=== PATIENT | male | born 1990 | race Caucasian/White ===

== ENCOUNTER 2017-04-18 17:14 | Emergency (ER) | payer SELFPAY ==
[~2017-04-18] VITALS: Ht 177.8 cm; Wt 70.0 kg
[~2017-04-18 17:14] MED LIST: AMOX875 PO; MEDR4PAK3 PO; SUBO2MIS SL; VENTAER INH; ZITH250T PO
[2017-04-18 17:32] VITALS: BP 117/63; PULSE 84; RESP 16; TEMP 98.4; O2SAT 100
[2017-04-18] MEDS ORDERED: BUPR8SUB SL (17:39)
[2017-04-18] MEDS ORDERED: TETANUS/DIPHTHERIA TOXOID ADULT 0.5 ML VIAL IM ONE (17:45)
--- NOTE | 2017-04-18 17:48 | PD ---
HPI Chief Complaint: Laceration/Skin Injury Time Seen by Provider: 17:45 Travel History International Travel<30 days: No Contact w/Intl Traveler<30days: No Traveled to known affect area: No History of Present Illness HPI 27-year-old male presents to the emergency room for evaluation after stepping on a greta nail 6 hours prior to arrival. Patient states the nail went through his shoe and poked his foot. He was bleeding. He went home and washed it off with hydrogen peroxide and applied triple antibiotic ointment. He came to the emergency room because he does not remember his last tetanus shot. Patient reports minimal pain. He has been ambulatory since onset of symptoms. [facility] Past Medical History Depression: Yes Heart Rhythm Problems: Yes (SVT) Diminished Hearing: No Neurologic: Yes (CHRONIC BACK PAIN) Immunizations Current: No Tetanus Vaccination: > 5 Years Influenza Vaccination: No Past Surgical History Other Surgery: No Social History Alcohol Use: No Tobacco Use: Yes (11/29) Substance Use: Yes (MARIJUANA or "anything". last used begining of 12/10) Allergies-Medications (Allergen,Severity, Reaction): Coded Allergies: No Known Allergies (Verified , 04/18/17) Reported Meds & Prescriptions Reported Meds & Active Scripts Active Cipro (Ciprofloxacin HCl) 250 Mg Tab 500 Mg PO BID 7 Days Reported Buprenorphine (Buprenorphine HCl) 8 Mg Subl 8 Mg SL Review of Systems Except as stated in HPI: all other systems reviewed are Neg Physical Exam Narrative GENERAL: Well-nourished, well-developed male in no acute distress. Afebrile. Ambulatory. SKIN: Focused skin assessment warm/dry. There is a 2 mm superficial laceration to the posterior heel of the right foot. Nontender. No surrounding erythema. No drainage. HEAD: Normocephalic. EYES: No scleral icterus. No injection or drainage. NECK: Supple, trachea midline. No JVD or lymphadenopathy. CARDIOVASCULAR: Regular rate and rhythm without murmurs, gallops, or rubs. RESPIRATORY: Breath sounds equal bilaterally. No accessory muscle use. PSYCHIATRIC: No delusional thought processes. No hallucinations. Data Data Last Documented VS Vital Signs Date Time Temp Pulse Resp B/P Pulse Ox O2 Delivery O2 Flow Rate FiO2 04/18/17 17:32 98.4 84 16 117/63 100 Orders Tetanus/Diphtheria Tox Adult (Tetanus/Di (04/18/17 17:45) [facility] Medical Decision Making Medical Screen Exam Complete: Yes Emergency Medical Condition: Yes Medical Record Reviewed: Yes Differential Diagnosis Puncture wound versus tetanus prophylaxis versus infection Narrative Course 27-year-old male presents to the emergency room for evaluation after stepping on a greta nail. Nail went through his shoe. He was updated on tetanus. Physical exam reveals a 2 mm superficial laceration to the posterior heel of the right foot. Nontender. No surrounding erythema. No drainage. Patient will be discharged with prophylactic antibiotics. Told to follow up with a primary care physician or return for worsening symptoms. Understands and agrees to plan. Diagnosis Primary Impression: Puncture wound of skin from metal nail Referrals: Primary Care Physician Patient Instructions: General Instructions, Puncture Wound (ED) Additional Instructions: Rest and drink plenty of fluids. Take Cipro as directed, until gone. Take ibuprofen with food as directed, as needed for pain. Soak in warm water for 20 minutes at a time, as needed for pain and swelling. Follow-up with a primary care physician. Return to the emergency room for worsening symptoms. Med/Other Pt SpecificInfo: Prescription(s) given Scripts Ciprofloxacin (Cipro)250 Mg [id number] Mg PO BID 7 Days Ref 0 Prov:Niya Simpson MD 04/18/17 Disposition: 01 DISCHARGE HOME Condition: Stable Dinora Armijo April 18, 2017 17:48
[2017-04-18] MEDS ORDERED: CIPR250T52 PO (17:50)
== END 2017-04-18 18:05 | disposition home or self-care (01) ==
LOC: PHEFT 17:14
DX: S91.331A Puncture wound without foreign body, right foot, initial encounter (principal); Z23 Encounter for immunization; W45.0XXA Nail entering through skin, initial encounter; Y93.9 Activity, unspecified; Y92.9 Unspecified place or not applicable; Y99.9 Unspecified external cause status
CPT/HCPCS: 90471; 90714

== ENCOUNTER 2017-06-14 15:39 | Emergency (ER) | payer SELFPAY ==
[~2017-06-14] VITALS: Ht 175.3 cm; Wt 69.6 kg
[~2017-06-14 15:39] MED LIST changes: -AMOX875 PO; +BUPR8SUB SL; +CIPR250T52 PO; -MEDR4PAK3 PO; -SUBO2MIS SL; -VENTAER INH; -ZITH250T PO
[2017-06-14 16:21] VITALS: BP 117/63; PULSE 81; RESP 16; TEMP 98.2; O2SAT 99
--- NOTE | 2017-06-14 16:58 | PD ---
HPI Chief Complaint: Injury Time Seen by Provider: 16:40 Travel History International Travel<30 days: No Contact w/Intl Traveler<30days: No Traveled to known affect area: No History of Present Illness HPI 77-year-old male presents to the emergency room for evaluation of right shoulder pain and swelling after falling just prior to arrival. Patient was on his skateboard and he fell landing with all his weight on the right shoulder. Localizes pain to the lateral clavicle. Denies any other injuries. States pain is most severe with abduction. He denies paresthesias. Came straight to the emergency room and has not taken anything for his symptoms. No chronic medical conditions. PFSH Past Medical History Depression: Yes Heart Rhythm Problems: Yes (SVT) Diminished Hearing: No Neurologic: Yes (CHRONIC BACK PAIN) Immunizations Current: No Past Surgical History Surgical History: No Previous Surgery Other Surgery: No Social History Alcohol Use: Yes ([facility]) Tobacco Use: Yes (1/2) Substance Use: Yes (ON SUBOXONE OPOID ABUSE) Allergies-Medications (Allergen,Severity, Reaction): Coded Allergies: No Known Allergies (Verified , 06/14/17) Reported Meds & Prescriptions Reported Meds & Active Scripts Active Reported Buprenorphine (Buprenorphine HCl) 8 Mg Subl 4 Mg SL Review of Systems Except as stated in HPI: all other systems reviewed are Neg Physical Exam Narrative GENERAL: Well-nourished, well-developed male in no acute distress. Afebrile. Ambulatory. SKIN: Focused skin assessment warm/dry. Slight abrasion over the right shoulder. No erythema or ecchymosis. HEAD: Normocephalic. EYES: No scleral icterus. No injection or drainage. NECK: Supple, trachea midline. No JVD or lymphadenopathy. CARDIOVASCULAR: Regular rate and rhythm without murmurs, gallops, or rubs. RESPIRATORY: Breath sounds equal bilaterally. No accessory muscle use. EXTREMITY: Right lateral clavicle tender to palpation. There is moderate edema. Full range motion of the right upper extremity with moderate pain. 2+ radial pulse. Radial, ulnar, and median nerves intact. Data Data Last Documented VS Vital Signs Date Time Temp Pulse Resp B/P Pulse Ox O2 Delivery O2 Flow Rate FiO2 06/14/17 16:21 98.2 81 16 117/63 99 Orders Shoulder, Complete (>2vws) (06/14/17 ) [facility] Medical Decision Making Medical Screen Exam Complete: Yes Emergency Medical Condition: Yes Medical Record Reviewed: Yes Differential Diagnosis Shoulder sprain, fracture, dislocation, separation Narrative Course 27-year-old male presents to the emergency room for evaluation of right shoulder pain and swelling after falling off his skateboard onto his shoulder earlier today. Patient has full range of motion of the right shoulder. Right lower extremity is neurovascularly intact. 2+ radial pulses. Radial, ulnar, and median nerves intact. There is moderate edema and extreme tenderness to palpation of the lateral clavicle. X-ray is negative. Likely shoulder sprain. Patient discharged with orthopedic instructions and told to follow-up with a primary care physician or return for worsening symptoms. He understands and agrees to plan. Diagnosis Primary Impression: Sprain of right shoulder Qualified Code: S43.401A - Sprain of right shoulder, unspecified shoulder sprain type, initial encounter Referrals: Primary Care Physician Patient Instructions: General Instructions, Shoulder Sprain (ED) Additional Instructions: Rest and drink plenty of fluids. Take ibuprofen with food as directed, as needed for pain. Apply ice to the affected area for 20 minutes at a time, as needed for pain and swelling. Follow-up with a primary care physician. Return to the emergency room for worsening symptoms. Disposition: 01 DISCHARGE HOME Condition: Stable Dinora Armijo Jun 14, 2017 16:58
--- NOTE | 2017-06-14 17:25 | RADRPT ---
EXAM DATE/TIME: 06/14/2017 17:00 [place] COMPARISON: No previous studies available for comparison. INDICATIONS : Right shoulder pain after a skateboard accident today. MEDICAL HISTORY : None. SURGICAL HISTORY : None. ENCOUNTER: Initial ACUITY: 1 day PAIN SCORE: 8/10 LOCATION: Right shoulder. FINDINGS: Multiple view examination of the right shoulder demonstrates no evidence of fracture or dislocation. The glenohumeral and acromioclavicular joints are maintained. There is normal range of motion betwe en internal and external rotation. Bony mineralization is normal. CONCLUSION: Unremarkable examination of the right shoulder. Ossific fragment along the undersurface of the clavic le likely old injury Ramírez Garcia MD on June 14, 2017 at 17:23 Board Certified Radiologist. This report was verified electronically.
== END 2017-06-14 17:49 | disposition home or self-care (01) ==
LOC: PHEFT 15:39
DX: S43.401A Unspecified sprain of right shoulder joint, initial encounter (principal); F17.200 Nicotine dependence, unspecified, uncomplicated; Z86.79 Personal history of other diseases of the circulatory system; Z87.39 Personal history of other diseases of the musculoskeletal system and connective tissue; Z86.59 Personal history of other mental and behavioral disorders; V00.131A Fall from skateboard, initial encounter; Y93.51 Activity, roller skating (inline) and skateboarding
CPT/HCPCS: 73030; 99283

== ENCOUNTER 2018-03-02 18:22 | Emergency (ER) | payer SELFPAY ==
[~2018-03-02] VITALS: Ht 175.3 cm; Wt 69.0 kg
[~2018-03-02 18:22] MED LIST changes: -CIPR250T52 PO
[2018-03-02 18:28] VITALS: BP 133/68; PULSE 82; RESP 16; TEMP 99.2; O2SAT 99
[2018-03-02] MEDS ORDERED: BENZ100 PO (18:49)
--- NOTE | 2018-03-02 18:55 | PD ---
HPI Chief Complaint: Cold / Flu Symptoms Time Seen by Provider: 18:33 Travel History International Travel<30 days: No Contact w/Intl Traveler<30days: No Traveled to known affect area: No History of Present Illness HPI 28-year-old male presents emergency department for evaluation of a cough, congestion and left upper chest wall pain with coughing that has been present for approximately 3-4 days. Patient states that the chest wall pain is sharp in nature and only with coughing. Says his cough developed over the last day or so. Patient says he has had sick contacts. His girlfriend works in a [place] center and is exposed to constant illness. Patient has been using Mucinex with good expectoration. Says he has had a productive cough with green colored sputum. He smokes one half pack per day and is on Suboxone. Patient denies shortness of breath, back pain, abdominal pain, leg pain. Says he has had subjective fevers but has not actually checked his temperature. He denies any other medical issues medication use. He denies nausea, vomiting or diarrhea. Denies history of IV drug use or other illicits. PFSH Past Medical History Depression: Yes Heart Rhythm Problems: Yes (SVT) Chest Pain: Yes Diminished Hearing: No Neurologic: Yes (CHRONIC BACK PAIN) Immunizations Current: No ?: Not Past Surgical History Surgical History: No Previous Surgery Other Surgery: No Social History Alcohol Use: Yes ([facility]) Tobacco Use: Yes (1/2) Substance Use: Yes (ON SUBOXONE OPOID ABUSE) Allergies-Medications (Allergen,Severity, Reaction): Coded Allergies: No Known Allergies (Verified Adverse Reaction, Unknown, 03/02/18) Reported Meds & Prescriptions Reported Meds & Active Scripts Active Tessalon Perles (Benzonatate) 100 Mg Cap 100 Mg PO TID PRN 5 Days Reported Buprenorphine (Buprenorphine HCl) 8 Mg Subl 8 Mg SL Review of Systems Except as stated in HPI: all other systems reviewed are Neg Physical Exam Narrative GENERAL: Well-nourished, well-developed patient. SKIN: Focused skin assessment warm/dry. HEAD: Normocephalic. EYES: No scleral icterus. No injection or drainage. NECK: Supple, trachea midline. No JVD or lymphadenopathy. Pharynx pink, moist. CARDIOVASCULAR: Regular rate and rhythm without murmurs, gallops, or rubs. RESPIRATORY: Breath sounds equal bilaterally. No accessory muscle use. GASTROINTESTINAL: Abdomen soft, non-tender, nondistended. No CVA tenderness MUSCULOSKELETAL: No cyanosis, or edema. Homans sign negative bilaterally BACK: Nontender without obvious deformity. No CVA tenderness. Data Data Last Documented VS Vital Signs Date Time Temp Pulse Resp B/P (MAP) Pulse Ox O2 Delivery O2 Flow Rate FiO2 03/02/18 18:28 99.2 82 16 133/68 (89) 99 Orders Orders Ed Discharge Order (03/02/18 18:55) MDM Medical Decision Making Medical Screen Exam Complete: Yes Emergency Medical Condition: Yes Differential Diagnosis Bronchitis, upper respiratory infection, influenza Narrative Course 28-year-old male presents emergency department for evaluation of cough, congestion, left upper chest wall pain that began approximately 3 days ago. Patient states that he has been exposed to sick contacts. Vital signs are stable. The exam findings essentially unremarkable. He has mild tenderness palpation of the left upper chest wall pain, reproducing his pain. Because of the lack of trauma, history and physical, will avoid chest x-ray for now. Lungs clear to auscultation bilaterally without wheezing, rales or rhonchi. Patient's history and physical is consistent with bronchitis. He will be discharged with Tessalon Perles for nighttime cough. Tylenol or Motrin per package instructions for his chest wall pain. Advised to follow-up with [facility] for his care. Return to the emergency department worsening or persistent symptoms. Diagnosis Primary Impression: Bronchitis Referrals: [facility] Additional Instructions: Follow-up with [facility] as discussed. Take all medications as prescribed. Take Tylenol or Motrin per package instructions for your discomfort. If your symptoms persist or worsen return to the emergency department. Scripts Benzonatate (Tessalon Perles) 100 Mg Cap 100 MG PO TID Y for COUGH for 5 Days, CAP 0 Refills Prov: Elis Brown MD 03/02/18 Disposition: 01 DISCHARGE HOME Condition: Stable Mer Montelongo Mar 02, 2018 18:55
== END 2018-03-02 19:31 | disposition home or self-care (01) ==
LOC: PHEFT 18:22
DX: J40 Bronchitis, not specified as acute or chronic (principal); R07.89 Other chest pain; F17.210 Nicotine dependence, cigarettes, uncomplicated; F32.9 Major depressive disorder, single episode, unspecified; I47.1 Supraventricular tachycardia; G89.29 Other chronic pain; M54.9 Dorsalgia, unspecified; F11.10 Opioid abuse, uncomplicated
CPT/HCPCS: 99283

== ENCOUNTER 2018-04-02 15:47 | Emergency (ER) | payer SELFPAY ==
[2018-04-02] MEDS ORDERED: SODIUM CHLORIDE 0.9% FLUSH 10 ML FLUSH IVF (16:15)
[2018-04-02 16:23] LABS: BILIRUBIN, URINE NEG (NEG); BLOOD, URINE NEG (NEG); GLUCOSE,URINE NEG (NEG); KETONE, URINE NEG (NEG); NITRITE,URINE NEG (NEG); URINE COLOR YELLOW (YELLW/STRAW); URINE LEUKOCYTE ESTERASE NEG (NEG)
[2018-04-02 16:41] LABS: MUCUS URINE RARE /lpf (OCC)
[2018-04-02 16:41] LABS: METHOD OF COLLECTION VOIDED
== END 2018-04-02 18:07 | disposition home or self-care (01) ==
LOC: PHED 15:47
DX: N43.3 Hydrocele, unspecified (principal); F32.9 Major depressive disorder, single episode, unspecified; I47.1 Supraventricular tachycardia; F17.200 Nicotine dependence, unspecified, uncomplicated
CPT/HCPCS: 76870; 81001; 93975; 99284-25